=== PATIENT | female | born 1960 | race African-American/Black ===

== ENCOUNTER 2018-03-10 23:18 | Emergency (ER) | payer MEDICAID, OTHER ==
[~2018-03-10] VITALS: Ht 177.8 cm; Wt 91.0 kg
[~2018-03-10 23:18] MED LIST: IRON
[2018-03-10 23:50] VITALS: BP 127/74
[2018-03-11] MEDS ORDERED: NAPROXEN 500MG TABLET PO ONE (00:45)
[2018-03-11] MEDS ORDERED: LIDOCAINE HCL/EPINEPHRINE 1%-EPI 1:100,000 30 ML VIAL INFIL ONE (00:45)
[2018-03-11] MEDS ORDERED: PENICILLIN V POTASSIUM 250MG TABLET PO NR (02:00)
== END 2018-03-11 02:12 | disposition home or self-care (01) ==
LOC: ER 23:18
DX: K04.7 Periapical abscess without sinus (principal); I25.10 Atherosclerotic heart disease of native coronary artery without angina pectoris; Z90.710 Acquired absence of both cervix and uterus; Z91.018 Allergy to other foods
CPT/HCPCS: 99283; Z7610

== ENCOUNTER 2018-11-13 16:16 | Inpatient (IN) | payer MEDICAID ==
[~2018-11-13] VITALS: Ht 177.8 cm; Wt 89.9 kg
[~2018-11-13 16:16] MED LIST changes: +AMOX500T2 PO; +ASPI-1159 PO; +ATOR20TA PO; +FERR-71 PO; -IRON
[2018-11-13 17:03] LABS: CLARITY URINE CLEAR (CLEAR); COLOR URINE YELLOW (YELLOW); KETONES URINE NEGATIVE (NEGATIVE); LEUKOCYTE ESTERASE URINE TRACE (NEGATIVE); NITRITE URINE NEGATIVE (NEGATIVE); OCCULT BLOOD URINE NEGATIVE (NEGATIVE); PH URINE 5.5 (4.5-8.0); PROTEIN URINE NEGATIVE (NEGATIVE)
[2018-11-13 17:28] LABS: BASOPHILS % 0.3 % (0.0-2.0); EOSINOPHILS % 0.6 % (0.0-5.0); HEMATOCRIT. 37.2 % (36.0-48.0); HEMOGLOBIN. 12.4 g/dL (12.0-16.0); LYMPHOCYTES % 32.8 % (20.0-50.0); MEAN CORPUSCULAR HEMOGLOBIN 32.2 pg (28.0-32.0); MEAN CORPUSCULAR VOLUME 96.9 fL (81.0-99.0); MEAN PLATELET VOLUME 8.7 fl (7.4-10.4); MONOCYTES % 6.3 % (2.0-8.0); PLATELET 252 x1000/uL (130-400); RED BLOOD CELL COUNT 3.84 mill/uL (4.2-5.4); RED CELL DISTRIBUTION WIDTH 12.7 % (11.6-14.6)
[2018-11-13 17:34] LABS: CHLORIDE 105 mEq/L (98-107)
[2018-11-13] MEDS ORDERED: SODIUM CHLORIDE 0.9% 1,000 ML IV ONE (20:30)
[2018-11-13] MEDS ORDERED: IPRATROPIUM/ALBUTEROL 0.5-3(2.5)MG/3ML NEB INH PRN (20:45)
[2018-11-13] MEDS ORDERED: CLONIDINE 0.1MG TABLET PO PRN (20:45)
[2018-11-13] MEDS ORDERED: GUAIFENESIN 200MG/10ML SUGAR FREE UDC PO PRN (20:45)
[2018-11-13] MEDS ORDERED: DOCUSATE SODIUM 100MG CAPSULE PO PRN (20:45)
[2018-11-13] MEDS ORDERED: MAGNESIUM/ALUMINUM HYDROXIDE/SIMETHICONE 30ML UDC PO PRN (20:45)
[2018-11-13] MEDS ORDERED: HYDROCODONE/ACETAMINOPHEN 5/325MG TABLET PO PRN (20:45)
[2018-11-13] MEDS ORDERED: ONDANSETRON HCL 4MG/2ML INJ IV PRN (20:45)
[2018-11-13] MEDS ORDERED: ACETAMINOPHEN 325MG TABLET PO PRN (20:45)
[2018-11-13] MEDS ORDERED: CEFTRIAXONE 1 G PREMIX 50 ML IV ONE (21:30)
[2018-11-13 22:05] LABS: CHLORIDE 110 mEq/L (98-107)
[2018-11-13 22:14] LABS: CREATINE KINASE 128 IU/L (26-192)
[2018-11-13 22:16] LABS: CREATINE KINASE MB FRACTION < 1.0 ng/mL (0.5-3.6)
[2018-11-13 23:27] VITALS: BP 129/51
[2018-11-13 23:35] VITALS: BP 129/51
[2018-11-14 04:00] VITALS: BP 125/60
[2018-11-14 04:36] VITALS: BP 129/51
[2018-11-14 06:44] LABS: BASOPHILS % 0.4 % (0.0-2.0); EOSINOPHILS % 1.1 % (0.0-5.0); HEMATOCRIT. 33.6 % (36.0-48.0); HEMOGLOBIN. 11.2 g/dL (12.0-16.0); LYMPHOCYTES % 35.3 % (20.0-50.0); MEAN CORPUSCULAR HEMOGLOBIN 32.2 pg (28.0-32.0); MEAN CORPUSCULAR VOLUME 96.8 fL (81.0-99.0); MONOCYTES % 8.3 % (2.0-8.0); NEUTROPHILS % 54.9 % (40.0-76.0); PLATELET 226 x1000/uL (130-400); RED BLOOD CELL COUNT 3.47 mill/uL (4.2-5.4); RED CELL DISTRIBUTION WIDTH 12.8 % (11.6-14.6)
[2018-11-14 07:25] LABS: CREATINE KINASE 112 IU/L (26-192)
[2018-11-14 07:26] LABS: CREATINE KINASE MB FRACTION < 1.0 ng/mL (0.5-3.6)
[2018-11-14 08:00] VITALS: BP_SYST 101; BP_SYST 102; BP_SYST 106; BP_SYST 109; BP_DIAS 42; BP_DIAS 52; BP_DIAS 54; BP_DIAS 57
[2018-11-14] MEDS: ENOXAPARIN 40MG/0.4ML SYR SUBCUT SCH (08:38)
[2018-11-14 12:00] VITALS: BP 132/54
[2018-11-14 13:50] LABS: TOTAL IRON BINDING CAPACITY 233 ug/dL (250-450)
[2018-11-14 14:07] LABS: FOLIC ACID (FOLATE) SERUM 8.8 ng/mL (>5.38)
[2018-11-14] MEDS: ASPIRIN 81MG TABLET PO SCH (14:53)
[2018-11-14] MEDS: ATORVASTATIN CALCIUM 20MG TABLET PO SCH (14:53)
[2018-11-14 16:00] VITALS: BP 110/45
[2018-11-14 16:03] LABS: *BARBITURATES SCREEN URINE NEGATIVE (NEGATIVE); *BENZODIAZEPINES SCREEN URINE NEGATIVE (NEGATIVE); *COCAINE SCREEN URINE NEGATIVE (NEGATIVE); METHADONE URINE SCREEN NEGATIVE (NEGATIVE); OPIATES URINE SCREEN NEGATIVE (NEGATIVE)
[2018-11-14 16:04] LABS: *AMPHETAMINES SCREEN URINE NEGATIVE (NEGATIVE); CANNABINOID URINE SCREEN NEGATIVE (NEGATIVE); PHENCYCLIDINE URINE SCREEN NEGATIVE (NEGATIVE)
[2018-11-14 20:00] VITALS: BP_SYST 124; BP_SYST 140; BP_SYST 145; BP_DIAS 66; BP_DIAS 68; BP_DIAS 71
[2018-11-15] VITALS: BP 130/72
[2018-11-15 04:00] VITALS: BP 111/45
[2018-11-15 07:00] LABS: BASOPHILS % 0.5 % (0.0-2.0); EOSINOPHILS % 1.5 % (0.0-5.0); HEMATOCRIT. 36.3 % (36.0-48.0); LYMPHOCYTES % 38.9 % (20.0-50.0); MEAN CORPUSCULAR HEMOGLOBIN 32.2 pg (28.0-32.0); MEAN PLATELET VOLUME 9.1 fl (7.4-10.4); MONOCYTES % 6.5 % (2.0-8.0); NEUTROPHILS % 52.6 % (40.0-76.0); PLATELET 223 x1000/uL (130-400); RED BLOOD CELL COUNT 3.74 mill/uL (4.2-5.4); RED CELL DISTRIBUTION WIDTH 12.7 % (11.6-14.6)
[2018-11-15 07:34] LABS: CHLORIDE 107 mEq/L (98-107)
[2018-11-15 08:18] VITALS: BP_SYST 107; BP_SYST 95; BP_DIAS 34; BP_DIAS 43; BP_DIAS 56
[2018-11-15] MEDS: ASPIRIN 81MG TABLET PO SCH (08:55)
[2018-11-15] MEDS: ATORVASTATIN CALCIUM 20MG TABLET PO SCH (08:55)
[2018-11-15] MEDS: ENOXAPARIN 40MG/0.4ML SYR SUBCUT SCH (08:56)
[2018-11-15 12:00] VITALS: BP 101/38
[2018-11-15 14:31] VITALS: BP 101/38
== END 2018-11-15 15:13 | disposition home or self-care (01) | DRG 201 ==
LOC: ER 16:16 → 7WST 20:40 → ENRESERV 21:24
PROVIDERS: ADMIT Internal Medicine; ATTEND Internal Medicine
DX: R00.1 Bradycardia, unspecified (principal); D64.9 Anemia, unspecified; E78.00 Pure hypercholesterolemia, unspecified; E78.5 Hyperlipidemia, unspecified; I10 Essential (primary) hypertension; K59.00 Constipation, unspecified; Z79.82 Long term (current) use of aspirin; Z90.710 Acquired absence of both cervix and uterus; Z91.010 Allergy to peanuts; Z91.018 Allergy to other foods; Z79.2 Long term (current) use of antibiotics; Z79.899 Other long term (current) drug therapy
CPT/HCPCS: 36415; 71045; 80048; 80061; 80305; 82550; 82553; 82607; 82728; 82746; 82962; 83036; 83540; 83550; 83735; 83880; 84443; 84484; 87804; 93005; 93970; 96374; 96375; 99285; J0696; J1650; J7030

== ENCOUNTER 2019-01-26 08:24 | Inpatient (IN) | payer MEDICAID ==
[2019-01-26] VITALS (21 sets, daily range): BP systolic 81–157; BP diastolic 25–75
[~2019-01-26] VITALS: Ht 165.1 cm; Wt 93.9 kg
[~2019-01-26 08:24] MED LIST changes: -AMOX500T2 PO; -ASPI-1159 PO; +ASPI-1393 PO; -FERR-71 PO
[2019-01-26] MEDS ORDERED: ATROPINE SULFATE 1MG/ML VIAL IV STA (09:08)
[2019-01-26] MEDS ORDERED: DOPAMINE 400MG/250ML PREMIX 250 ML IV ONE (09:15)
[2019-01-26 09:32] LABS: BASOPHILS % 0.6 % (0.0-2.0); HEMATOCRIT. 36.6 % (36.0-48.0); HEMOGLOBIN. 12.2 g/dL (12.0-16.0); LYMPHOCYTES % 33.1 % (20.0-50.0); MEAN CORPUSCULAR HEMOGLOBIN 32.5 pg (28.0-32.0); MEAN CORPUSCULAR VOLUME 97.6 fL (81.0-99.0); MEAN PLATELET VOLUME 8.5 fl (7.4-10.4); MONOCYTES % 14.1 % (2.0-8.0); NEUTROPHILS % 51.2 % (40.0-76.0); PLATELET 211 x1000/uL (130-400); RED BLOOD CELL COUNT 3.75 mill/uL (4.2-5.4); RED CELL DISTRIBUTION WIDTH 12.7 % (11.6-14.6)
[2019-01-26 09:38] LABS: CHLORIDE 107 mEq/L (98-107)
[2019-01-26 09:39] LABS: INR 1.1; PARTIAL THROMBOPLASTIN TIME 29.1 sec (23.4-31.0); PROTHROMBIN TIME 11.2 sec (9.6-11.0)
[2019-01-26 09:45] LABS: PHOSPHORUS 4.2 mg/dL (2.5-4.9)
[2019-01-26] MEDS ORDERED: NITROGLYCERIN OINT 1GM/INCH UDPKT TD ONE (09:45)
[2019-01-26] MEDS ORDERED: ASPIRIN 81MG TABLET PO ONE (09:45)
[2019-01-26 09:48] LABS: T4 FREE 0.98 ng/dL (0.76-1.46)
[2019-01-26] MEDS ORDERED: HYDROCODONE/ACETAMINOPHEN 5/325MG TABLET PO PRN (10:30)
[2019-01-26] MEDS ORDERED: DIPHENHYDRAMINE 50MG/ML VIAL IV PRN (10:30)
[2019-01-26] MEDS ORDERED: LORAZEPAM 2MG/ML CPJ IV PRN (10:30)
[2019-01-26] MEDS ORDERED: MAGNESIUM/ALUMINUM HYDROXIDE/SIMETHICONE 30ML UDC PO PRN (10:30)
[2019-01-26] MEDS ORDERED: IPRATROPIUM/ALBUTEROL 0.5-3(2.5)MG/3ML NEB INH PRN (10:30)
[2019-01-26] MEDS ORDERED: DOCUSATE SODIUM 100MG CAPSULE PO PRN (10:30)
[2019-01-26] MEDS ORDERED: GUAIFENESIN 200MG/10ML SUGAR FREE UDC PO PRN (10:30)
[2019-01-26] MEDS ORDERED: ONDANSETRON HCL 4MG/2ML INJ IV PRN (10:30)
[2019-01-26] MEDS ORDERED: CLONIDINE 0.1MG TABLET PO PRN (10:30)
[2019-01-26 11:01] LABS: CLARITY URINE CLEAR (CLEAR); COLOR URINE YELLOW (YELLOW); KETONES URINE NEGATIVE (NEGATIVE); LEUKOCYTE ESTERASE URINE TRACE (NEGATIVE); NITRITE URINE NEGATIVE (NEGATIVE); OCCULT BLOOD URINE NEGATIVE (NEGATIVE); PROTEIN URINE NEGATIVE (NEGATIVE); SPECIFIC GRAVITY URINE 1.005 (1.005-1.030); UROBILINOGEN URINE 0.2 E.U./dL (0.2-1.0)
[2019-01-26 11:44] LABS: CHLORIDE 109 mEq/L (98-107)
[2019-01-26] MEDS ORDERED: NA PHOS,M-B/NA PHOS,DI-BA ENEMA 118ML PR PRN (17:00)
[2019-01-26] MEDS ORDERED: MORPHINE SULFATE 2 MG/ML CPJ (NOT FOR IM USE) IV PRN (17:00)
[2019-01-26] MEDS: ENOXAPARIN 40MG/0.4ML SYR SUBCUT SCH (19:17)
[2019-01-26] MEDS ORDERED: DOPAMINE 400MG/250ML PREMIX 250 ML IV PRN (20:15)
[2019-01-27] VITALS (30 sets, daily range): BP systolic 80–125; BP diastolic 43–75
[2019-01-27 05:58] LABS: BASOPHILS % 0.6 % (0.0-2.0); EOSINOPHILS % 0.8 % (0.0-5.0); HEMOGLOBIN. 12.6 g/dL (12.0-16.0); LYMPHOCYTES % 25.6 % (20.0-50.0); MEAN CORPUSCULAR VOLUME 96.5 fL (81.0-99.0); MONOCYTES % 13.3 % (2.0-8.0); NEUTROPHILS % 59.7 % (40.0-76.0); PLATELET 219 x1000/uL (130-400); RED BLOOD CELL COUNT 3.83 mill/uL (4.2-5.4); RED CELL DISTRIBUTION WIDTH 12.8 % (11.6-14.6)
[2019-01-27 05:59] LABS: CHLORIDE 105 mEq/L (98-107)
[2019-01-27 06:12] LABS: LDL CHOLESTEROL 92 mg/dL (5-100)
[2019-01-27 06:13] LABS: HDL CHOLESTEROL 87 mg/dL (40-59)
[2019-01-27 06:14] LABS: T4 FREE 0.98 ng/dL (0.76-1.46)
[2019-01-27] MEDS: ASPIRIN 81MG EC TABLET PO SCH (08:22)
[2019-01-27] MEDS ORDERED: ALBUMIN HUMAN 25GM/500ML (5%) IV NR (14:00)
[2019-01-27] MEDS: ENOXAPARIN 40MG/0.4ML SYR SUBCUT SCH (18:06)
[2019-01-28] VITALS (15 sets, daily range): BP systolic 96–133; BP diastolic 33–87
[2019-01-28 06:02] LABS: BASOPHILS % 0.4 % (0.0-2.0); EOSINOPHILS % 1.7 % (0.0-5.0); HEMATOCRIT. 34.6 % (36.0-48.0); HEMOGLOBIN. 11.6 g/dL (12.0-16.0); LYMPHOCYTES % 38.2 % (20.0-50.0); MEAN CORPUSCULAR HEMOGLOBIN 32.2 pg (28.0-32.0); NEUTROPHILS % 48.7 % (40.0-76.0); PLATELET 217 x1000/uL (130-400); RED CELL DISTRIBUTION WIDTH 12.7 % (11.6-14.6)
[2019-01-28 06:07] LABS: INR 1.1; PROTHROMBIN TIME 11.4 sec (9.6-11.0)
[2019-01-28 06:27] LABS: CHLORIDE 106 mEq/L (98-107)
[2019-01-28] MEDS: ASPIRIN 81MG EC TABLET PO SCH (09:00)
[2019-01-28] MEDS ORDERED: CEFAZOLIN 1000MG PREMIX 100 ML IV ONE (12:18)
[2019-01-28] MEDS ORDERED: MIDAZOLAM HCL 2 MG/2 ML VIAL ONE ×2 (12:47→13:47)
[2019-01-28] MEDS ORDERED: FENTANYL CITRATE/PF 50MCG/ML 2ML VIAL ONE ×2 (12:48→13:46)
[2019-01-28] MEDS ORDERED: GENTAMICIN/NS IRRIGATION 500 ML IR ONE (12:48)
[2019-01-28] MEDS ORDERED: LIDOCAINE HCL 1% 20ML VIAL (Pyxis) INJ ONE (12:48)
[2019-01-28] MEDS ORDERED: DIPHENHYDRAMINE 50MG/ML VIAL ONE (13:14)
[2019-01-28] MEDS ORDERED: HYDROCODONE/ACETAMINOPHEN 5/325MG TABLET PO PRN (15:00)
[2019-01-28] MEDS ORDERED: MORPHINE SULFATE 2 MG/ML CPJ (NOT FOR IM USE) IV PRN (15:00)
[2019-01-28] MEDS: ENOXAPARIN 30MG/0.3ML SYR SUBCUT SCH (19:40)
[2019-01-28] MEDS: ACETAMINOPHEN 325MG TABLET PO PRN (21:50)
[2019-01-28] MEDS ORDERED: CEFAZOLIN SODIUM 1000MG/VIAL IV SCH (22:00)
[2019-01-28] MEDS: CEFAZOLIN 1000MG PREMIX 50 ML IV SCH (22:32)
[2019-01-29] VITALS (7 sets, daily range): BP systolic 96–117; BP diastolic 50–78
[2019-01-29] MEDS: CEFAZOLIN 1000MG PREMIX 50 ML IV SCH (06:03)
[2019-01-29] MEDS: ACETAMINOPHEN 325MG TABLET PO PRN (06:07)
[2019-01-29 07:56] LABS: BASOPHILS % 0.3 % (0.0-2.0); EOSINOPHILS % 1.2 % (0.0-5.0); HEMATOCRIT. 35.6 % (36.0-48.0); HEMOGLOBIN. 12.2 g/dL (12.0-16.0); LYMPHOCYTES % 25.1 % (20.0-50.0); MEAN CORPUSCULAR VOLUME 95.7 fL (81.0-99.0); MEAN PLATELET VOLUME 8.9 fl (7.4-10.4); MONOCYTES % 8.8 % (2.0-8.0); NEUTROPHILS % 64.6 % (40.0-76.0); PLATELET 215 x1000/uL (130-400); RED BLOOD CELL COUNT 3.72 mill/uL (4.2-5.4); RED CELL DISTRIBUTION WIDTH 12.5 % (11.6-14.6)
[2019-01-29 09:01] LABS: CHLORIDE 104 mEq/L (98-107)
[2019-01-29] MEDS: ASPIRIN 81MG EC TABLET PO SCH (09:48)
[2019-01-29] MEDS: ENOXAPARIN 30MG/0.3ML SYR SUBCUT SCH (09:49)
== END 2019-01-29 12:45 | disposition home or self-care (01) | DRG 171 ==
LOC: ER 08:24 → EDBEDREQ 09:16 → EDBEDREQSVC 10:07 → EDBEDREQ 10:07 → EDBEDREQTM 10:07 → EDRESERV 12:35 → ENRESERV 12:35 → CANRESERV 12:35 → EDBEDREQSVC 13:15 → MICUSO 13:21 → ENRESERV 15:07 → 5EST 01-27 10:47 → 3WST 01-28 15:10
PROVIDERS: ADMIT Internal Medicine; ATTEND Internal Medicine
PROC: 0JH606Z Insertion of Pacemaker, Dual Chamber into Chest Subcutaneous Tissue and Fascia, Open Approach (ICD-10-PCS; principal; 2019-01-28)
PROC: 02H63JZ Insertion of Pacemaker Lead into Right Atrium, Percutaneous Approach (ICD-10-PCS; 2019-01-28)
PROC: 02HK3JZ Insertion of Pacemaker Lead into Right Ventricle, Percutaneous Approach (ICD-10-PCS; 2019-01-28)
PROC: B2141ZZ Fluoroscopy of Right Heart using Low Osmolar Contrast (ICD-10-PCS; 2019-01-28)
DX: I49.5 Sick sinus syndrome (principal); G93.41 Metabolic encephalopathy; I95.9 Hypotension, unspecified; I11.9 Hypertensive heart disease without heart failure; D64.9 Anemia, unspecified; E86.0 Dehydration; E78.5 Hyperlipidemia, unspecified; I25.10 Atherosclerotic heart disease of native coronary artery without angina pectoris; E07.9 Disorder of thyroid, unspecified; E78.00 Pure hypercholesterolemia, unspecified; Z90.710 Acquired absence of both cervix and uterus; Z79.82 Long term (current) use of aspirin; Z79.899 Other long term (current) drug therapy; Z91.010 Allergy to peanuts; Z91.018 Allergy to other foods
CPT/HCPCS: 33208; 36415; 71045; 80048; 80061; 82962; 83735; 83880; 84100; 84439; 84443; 84484; 93005; 93306; 96374; 99285; A4565; C1785; C1892; C1898; J0461; J0690; J1200; J1265; J1650; J2250; J3010; J3490; J7050; P9041

== ENCOUNTER 2019-02-16 08:40 | Emergency (ER) | payer SELFPAY ==
[~2019-02-16] VITALS: Ht 177.8 cm; Wt 91.0 kg
[2019-02-16] MEDS ORDERED: SODIUM CHLORIDE 0.9% 1,000 ML IV ONE (10:17)
[2019-02-16 10:35] LABS: BASOPHILS % 0.4 % (0.0-2.0); EOSINOPHILS % 0.9 % (0.0-5.0); HEMATOCRIT. 37.4 % (36.0-48.0); HEMOGLOBIN. 12.3 g/dL (12.0-16.0); LYMPHOCYTES % 16.8 % (20.0-50.0); MEAN CORPUSCULAR HEMOGLOBIN 32.1 pg (28.0-32.0); MEAN CORPUSCULAR VOLUME 97.5 fL (81.0-99.0); MEAN PLATELET VOLUME 8.8 fl (7.4-10.4); MONOCYTES % 4.6 % (2.0-8.0); NEUTROPHILS % 77.3 % (40.0-76.0); PLATELET 215 x1000/uL (130-400); RED BLOOD CELL COUNT 3.84 mill/uL (4.2-5.4); RED CELL DISTRIBUTION WIDTH 12.4 % (11.6-14.6)
[2019-02-16 10:42] LABS: CHLORIDE 105 mEq/L (98-107)
[2019-02-16 10:43] LABS: INR 1.1; PROTHROMBIN TIME 11.7 sec (9.6-11.0)
[2019-02-16 11:17] LABS: CLARITY URINE CLEAR (CLEAR); COLOR URINE YELLOW (YELLOW); KETONES URINE NEGATIVE (NEGATIVE); LEUKOCYTE ESTERASE URINE TRACE (NEGATIVE); NITRITE URINE NEGATIVE (NEGATIVE); OCCULT BLOOD URINE 2+ (NEGATIVE); PROTEIN URINE NEGATIVE (NEGATIVE); SPECIFIC GRAVITY URINE 1.005 (1.005-1.030); UROBILINOGEN URINE 0.2 E.U./dL (0.2-1.0)
[2019-02-16 12:00] VITALS: BP 128/76
[2019-02-16] MEDS ORDERED: CEFTRIAXONE 1 G PREMIX 50 ML IV NR (12:00)
== END 2019-02-16 12:28 | disposition home or self-care (01) ==
LOC: ER 09:41
DX: N39.0 Urinary tract infection, site not specified (principal); R31.9 Hematuria, unspecified; I49.9 Cardiac arrhythmia, unspecified; Z95.0 Presence of cardiac pacemaker; Z79.82 Long term (current) use of aspirin; Z91.010 Allergy to peanuts; Z91.018 Allergy to other foods
CPT/HCPCS: 36415; 71045; 80053; 81003; 85025; 85610; 93005; 96361; 96374; 99284; J0696; J7030

== ENCOUNTER 2020-04-04 11:50 | Emergency (ER) | payer MEDICAID ==
[~2020-04-04] VITALS: Ht 162.6 cm; Wt 95.0 kg
[~2020-04-04 11:50] MED LIST changes: -ASPI-1393 PO; +ASPI-1497 PO
[2020-04-04 12:50] LABS: BASOPHILS % 0.6 % (0.0-2.0); CHLORIDE 110 mEq/L (98-107); EOSINOPHILS % 0.6 % (0.0-5.0); HEMATOCRIT. 36.8 % (36.0-48.0); HEMOGLOBIN. 12.4 g/dL (12.0-16.0); LYMPHOCYTES % 28.3 % (20.0-50.0); MEAN CORPUSCULAR HEMOGLOBIN 32.3 pg (28.0-32.0); MEAN PLATELET VOLUME 9.2 fl (7.4-10.4); MONOCYTES % 5.5 % (2.0-8.0); PLATELET 200 x1000/uL (130-400); RED BLOOD CELL COUNT 3.83 mill/uL (4.2-5.4); RED CELL DISTRIBUTION WIDTH 12.6 % (11.6-14.6)
[2020-04-04 13:54] VITALS: BP 122/68
== END 2020-04-04 15:26 | disposition left against medical advice (07) ==
LOC: ER 11:50
DX: G45.9 Transient cerebral ischemic attack, unspecified (principal); Z91.018 Allergy to other foods; Z91.010 Allergy to peanuts; Z79.899 Other long term (current) drug therapy; Z79.82 Long term (current) use of aspirin; Z98.890 Other specified postprocedural states
CPT/HCPCS: 36415; 71045; 80053; 83880; 84484; 85025; 93005; 99285

== ENCOUNTER → 2020-10-18 | Outpatient (CLI) | payer MEDICAID ==
[~2020-10-18] MED LIST changes: +CHOL2000 PO; +CLOP75TA33 PO
== END | disposition home or self-care (01) ==
LOC: LAB 12:37
PROVIDERS: ATTEND Surgery
DX: Z01.812 Encounter for preprocedural laboratory examination (principal); Z20.822 Contact with and (suspected) exposure to COVID-19
CPT/HCPCS: 87426

== ENCOUNTER 2020-10-19 06:50 | Day surgery (SDC) | payer MEDICAID ==
[~2020-10-19] VITALS: Ht 180.3 cm; Wt 94.3 kg
[~2020-10-19 06:50] MED LIST changes: +BUPIVACAINE HCL 0.5% (5MG/ML) 50ML ONE; -CHOL2000 PO; -CLOP75TA33 PO; +SKIN ADHESIVE 0.7 GM EA TOP ONE
[2020-10-19] MEDS: LACTATED RINGERS 1,000 ML IV SCH (07:57)
[2020-10-19] MEDS ORDERED: CLOP75TA33 PO (08:06)
[2020-10-19] MEDS ORDERED: CHOL2000 PO (08:06)
[2020-10-19] MEDS ORDERED: BUPIVACAINE HCL/PF 0.5% (5MG/ML) 10ML ONE ×2 (08:18→08:19)
[2020-10-19] MEDS ORDERED: MEPERIDINE HCL/PF 25MG/ML CPJ IV PRN (08:30)
[2020-10-19] MEDS ORDERED: MORPHINE SULFATE 2 MG/ML CPJ (NOT FOR IM USE) IV PRN (08:30)
[2020-10-19] MEDS ORDERED: ONDANSETRON HCL 4MG/2ML INJ IV PRN (08:30)
[2020-10-19] MEDS ORDERED: HYDROMORPHONE HCL/PF 2MG/ML CPJ IV PRN (08:30)
[2020-10-19] MEDS ORDERED: SODIUM CHLORIDE 0.9% 1,000 ML IV ONE (08:30)
[2020-10-19] MEDS ORDERED: ROCURONIUM BROMIDE 10MG/ML VIAL 5ML IV ONE (08:34)
[2020-10-19] MEDS ORDERED: MIDAZOLAM HCL 2 MG/2 ML VIAL ONE (08:34)
[2020-10-19] MEDS ORDERED: PROPOFOL 200MG/20ML VIAL IV ONE (08:34)
[2020-10-19] MEDS ORDERED: FENTANYL CITRATE/PF 50MCG/ML 2ML VIAL ONE (08:34)
[2020-10-19] MEDS ORDERED: NEOSTIGMINE METHYLSULFATE 1MG/ML 10 ML VIAL ONE (08:34)
[2020-10-19] MEDS ORDERED: METOCLOPRAMIDE HCL 10MG/2ML VIAL ONE (08:35)
[2020-10-19] MEDS ORDERED: SUCCINYLCHOLINE CHLORIDE 200MG/10ML IV ONE (08:35)
[2020-10-19] MEDS ORDERED: GLYCOPYRROLATE 0.2 MG/ML 2ML VIAL ONE (08:35)
[2020-10-19] MEDS ORDERED: SODIUM CHLORIDE 0.9% 10ML VIAL ONE (08:35)
[2020-10-19] MEDS ORDERED: CEFAZOLIN SODIUM 1000MG/VIAL ONE (08:35)
== END 2020-10-19 11:30 | disposition home or self-care (01) ==
LOC: OR 06:50
PROVIDERS: ATTEND Surgery
DX: D23.39 Other benign neoplasm of skin of other parts of face (principal); E78.00 Pure hypercholesterolemia, unspecified; Z86.73 Personal history of transient ischemic attack (TIA), and cerebral infarction without residual deficits; Z79.899 Other long term (current) drug therapy; Z98.890 Other specified postprocedural states; Z90.710 Acquired absence of both cervix and uterus; Z79.82 Long term (current) use of aspirin; Z88.8 Allergy status to other drugs, medicaments and biological substances
CPT/HCPCS: 21012; 82962; 88304; C1893; J0330; J0690; J2250; J2405; J2704; J2765; J3010; J3490; J2710

== ENCOUNTER 2023-06-26 13:48 | Emergency (ER) | payer OTHER ==
[~2023-06-26] VITALS: Ht 175.3 cm; Wt 73.0 kg
[~2023-06-26 13:48] MED LIST changes: +ACET-2708 PO; +APIX5TAB MT; -ASPI-1497 PO; -BUPIVACAINE HCL 0.5% (5MG/ML) 50ML ONE; +CHOL2000 PO; +GABA-529 PO; -SKIN ADHESIVE 0.7 GM EA TOP ONE; +SOTA80TA PO
[2023-06-26 13:55] VITALS: BP 110/60; PULSE 69; RESP 18; TEMP 98.2; O2SAT 100
[2023-06-26 15:05] LABS: BASOPHILS % 0.4 % (0.0-2.0); EOSINOPHILS % 0.6 % (0.0-5.0); HEMATOCRIT. 37.3 % (36.0-48.0); HEMOGLOBIN. 12.3 g/dL (12.0-16.0); LYMPHOCYTES % 23.6 % (20.0-50.0); MEAN CORPUSCULAR HEMOGLOBIN 31.8 pg (28.0-32.0); MEAN CORPUSCULAR VOLUME 96.4 fL (81.0-99.0); MEAN PLATELET VOLUME 9.1 fl (7.4-10.4); MONOCYTES % 7.3 % (2.0-8.0); NEUTROPHILS % 68.1 % (40.0-76.0); PLATELET 226 x1000/uL (130-400); RED BLOOD CELL COUNT 3.87 mill/uL (4.2-5.4); RED CELL DISTRIBUTION WIDTH 12.9 % (11.6-14.6); WHITE BLOOD COUNT 5.8 x1000/uL (4.5-11.0)
[2023-06-26 15:14] LABS: CHLORIDE 107 mEq/L (98-107); INDEX HEMOLYSI 1 (1-3); INDEX ICTERIC 1 (1-4); INDEX LIPEMIC 1 (1-3); POTASSIUM 3.9 mEq/L (3.5-5.1); SODIUM 141 mEq/L (136-145)
[2023-06-26 15:23] LABS: ALANINE AMINOTRANSFERASE 21 IU/L (13-61); ALBUMIN 3.8 g/dL (3.4-5.0); ASPARTATE AMINOTRANSFERASE 11 IU/L (15-37); BILIRUBIN TOTAL 0.5 mg/dL (0.1-1.0); CALCIUM 9.4 mg/dL (8.5-10.1); CARBON DIOXIDE 28 mEq/L (21-32); CREATININE 0.7 mg/dL (0.6-1.3); GLUCOSE 128 mg/dL (70-105); PROTEIN TOTAL 7.4 g/dL (6.0-8.3); UREA NITROGEN BLOOD 18 mg/dL (7-21)
[2023-06-26 19:02] LABS: CLARITY URINE CLEAR (CLEAR); COLOR URINE DARK YELLOW (YELLOW); GLUCOSE URINE NEGATIVE (NEGATIVE); KETONES URINE TRACE (NEGATIVE); LEUKOCYTE ESTERASE URINE 1+ (NEGATIVE); NITRITE URINE NEGATIVE (NEGATIVE); OCCULT BLOOD URINE NEGATIVE (NEGATIVE); PH URINE 5.5 (4.5-8.0); PROTEIN URINE TRACE (NEGATIVE); SPECIFIC GRAVITY URINE 1.033 (1.005-1.030)
[2023-06-26 19:05] LABS: SQUAMOUS EPITHELIAL CELL URINE 1+ /lpf (RARE/1+); YEAST URINE NONE SEEN
[2023-06-26 20:01] LABS: BACTERIA URINE TRACE; RBC URINE 0-2 /hpf (0-2)
== END 2023-06-27 03:03 | disposition left against medical advice (07) ==
LOC: ER 13:48 → EDBEDREQ 18:33 → CANBEDREQ 06-27 01:58 → ER 06-27 03:03
DX: R62.7 Adult failure to thrive (principal); Z86.73 Personal history of transient ischemic attack (TIA), and cerebral infarction without residual deficits; Z90.710 Acquired absence of both cervix and uterus; Z95.0 Presence of cardiac pacemaker; Z79.899 Other long term (current) drug therapy
CPT/HCPCS: 36415; 80053; 81003; 85025; 99283